=== PATIENT | female | born 1990 | race African-American/Black ===

== ENCOUNTER 2017-07-14 21:47 | Emergency (ER) | payer SELFPAY ==
[~2017-07-14] VITALS: Ht 162.6 cm; Wt 68.0 kg
[2017-07-15 01:33] VITALS: BP 128/70
== END 2017-07-15 01:34 | disposition home or self-care (01) ==
LOC: ER 21:47
DX: J40 Bronchitis, not specified as acute or chronic (principal); F17.200 Nicotine dependence, unspecified, uncomplicated; F12.10 Cannabis abuse, uncomplicated; F11.10 Opioid abuse, uncomplicated
CPT/HCPCS: 71010; 99283